=== PATIENT | male | born 1980 | race Caucasian/White ===

== ENCOUNTER 2017-12-26 10:40 | Inpatient (IN) | payer OTHER ==
[~2017-12-26] VITALS: Ht 195.6 cm; Wt 122.5 kg
[2017-12-27] VITALS (7 sets, daily range): BP systolic 109–131; BP diastolic 64–87
[2017-12-27] MEDS ORDERED: LORAZEPAM 1 MG TABLET PO PRN ×2 (03:00)
[2017-12-27] MEDS ORDERED: ACETAMINOPHEN 325 MG TABLET PO PRN (03:00)
[2017-12-27] MEDS ORDERED: BUPRENORPHINE HCL 2 MG TAB.SUBL SL PRN (03:00)
[2017-12-27] MEDS ORDERED: IBUPROFEN 400 MG TABLET PO PRN (03:00)
[2017-12-27] MEDS ORDERED: HYDROXYZINE PAMOATE 25 MG CAPSULE PO PRN (03:00)
[2017-12-27] MEDS ORDERED: MIRALAX 17 GM POWD.PACK PO PRN (03:00)
[2017-12-27] MEDS ORDERED: MAGNESIUM HYDROXIDE 30 ML LIQUID UDC PO PRN (03:00)
[2017-12-27] MEDS ORDERED: DICYCLOMINE HCL 20 MG TABLET PO PRN (03:00)
[2017-12-27] MEDS ORDERED: MAG HYDROX/AL HYDROX/SIMETH 30 ML LIQUID UDC PO PRN (03:00)
[2017-12-27] MEDS ORDERED: diphenhydrAMINE 50 MG CAPSULE PO PRN (03:00)
[2017-12-27] MEDS ORDERED: ONDANSETRON 4 MG/2 ML VIAL IM PRN (03:00)
[2017-12-27] MEDS ORDERED: LOPERAMIDE HCL 2 MG CAPSULE PO PRN ×2 (03:00)
[2017-12-27] MEDS ORDERED: LORAZEPAM 2 MG/1 ML VIAL IM PRN (03:00)
[2017-12-27] MEDS ORDERED: DULO60CA45 PO (03:10)
[2017-12-27] MEDS ORDERED: ALPR1TAB7 PO (03:10)
[2017-12-27] MEDS ORDERED: SUCR1ORA4 PO (03:10)
[2017-12-27] MEDS ORDERED: PANT40TA2 PO (03:10)
[2017-12-27] MEDS ORDERED: QUET200T PO (03:10)
[2017-12-27] MEDS ORDERED: DICL100T2 PO (03:10)
[2017-12-27 03:42] LABS: BASOPHILS # (AUTO) 0.1 K/uL (0.0-8.0); BASOPHILS % (AUTO) 0.8 % (0.0-2.0); EOSINOPHILS # (AUTO) 0.3 K/uL (0.0-0.7); EOSINOPHILS % (AUTO) 5.5 % (0.0-7.0); HEMATOCRIT 45.3 % (36.7-47.1); HEMOGLOBIN 14.8 g/dL (12.5-16.3); LYMPHOCYTES # (AUTO) 2.9 K/uL (20.0-40.0); LYMPHOCYTES % (AUTO) 46.6 % (20.5-51.5); MEAN CORPUSCULAR HEMOGLOBIN 25.4 uug (23.8-33.4); MEAN CORPUSCULAR HGB CONC 33 g/dL (32.5-36.3); MEAN CORPUSCULAR VOLUME 77.6 fL (73.0-96.2); MONOCYTES # (AUTO) 0.5 K/uL (2.0-10.0); MONOCYTES % (AUTO) 8.2 % (0.0-11.0); NEUTROPHILS # (AUTO) 2.5 K/uL (1.8-8.9); NEUTROPHILS % (AUTO) 38.9 % (38.5-71.5); PLATELET COUNT (AUTO) 218 K/uL (152-348); RED BLOOD CELL COUNT(AUTO) 5.84 MIL/uL (4.06-5.63); WHITE BLOOD COUNT (AUTO) 6.3 K/uL (3.6-10.2)
[2017-12-27 03:48] LABS: ALANINE AMINOTRANSFERASE 143 U/L (16-63); ALKALINE PHOSPHATASE 47 U/L (50-136); AMYLASE 55 U/L (25-115); ASPARTATE AMINOTRANSFERASE 55 U/L (15-37); BILIRUBIN,TOTAL 1.2 mg/dL (0.2-1.0); CARBON DIOXIDE 30 mmol/L (21-32); CHLORIDE 100 mmol/L (98-107); CREATININE 1.3 mg/dL (0.6-1.3); GLUCOSE 101 mg/dL (74-106); LIPASE 145 U/L (73-393); POTASSIUM 3.8 mmol/L (3.5-5.1); TOTAL PROTEIN, SERUM 8.8 g/dL (6.4-8.2); UREA NITROGEN, BLOOD 15 mg/dL (7-18)
[2017-12-27 03:50] LABS: ETHANOL < 3 MG/DL (0-0)
[2017-12-27 03:56] LABS: THYROID STIMULATING HORMONE 3.558 mIU/mL (0.358-3.740)
[2017-12-27] MEDS ORDERED: GABA300C PO (03:57)
[2017-12-27] MEDS ORDERED: TIZA4TAB4 PO (03:57)
[2017-12-27] MEDS ORDERED: MULTIVITAMINS,THERAPEUTIC TABLET PO SCH ×2 (09:00)
[2017-12-27] MEDS: SUCRALFATE 1 G/10 ML LIQUID UDC PO SCH ×3 (11:30→22:01)
[2017-12-27 13:07] LABS: *AMPHETAMINE, URINE NEGATIVE (NEGATIVE); *BARBITURATE, URINE NEGATIVE (NEGATIVE); *CANNABINOID, URINE NEGATIVE (NEGATIVE); *COCCAINE, URINE NEGATIVE (NEGATIVE); *OPIATE, URINE NEGATIVE (NEGATIVE); *PHENCYCLIDINE SCREEN,URINE NEGATIVE (NEGATIVE)
[2017-12-27] MEDS: LORAZEPAM 1 MG TABLET PO SCH ×2 (13:32→22:01)
[2017-12-27] MEDS: BUPRENORPHINE HCL 2 MG TAB.SUBL SL SCH ×2 (13:33→22:01)
[2017-12-27] MEDS: PANTOPRAZOLE SODIUM 40 MG TABLET.DR PO SCH (17:17)
[2017-12-27] MEDS: DULOXETINE 60 MG CAPSULE.DR PO SCH (22:00)
[2017-12-27] MEDS: GABAPENTIN 300 MG CAPSULE PO SCH (22:00)
[2017-12-28 00:39] VITALS: BP 130/86
[2017-12-28 04:25] VITALS: BP 126/79
[2017-12-28] MEDS ORDERED: CALC117719 PO (05:39)
[2017-12-28] MEDS: PANTOPRAZOLE SODIUM 40 MG TABLET.DR PO SCH ×2 (07:01→17:07)
[2017-12-28] MEDS: SUCRALFATE 1 G/10 ML LIQUID UDC PO SCH ×4 (07:01→21:15)
[2017-12-28 08:11] LABS: HEPATITIS B SURFACE AG Negative (Negative)
[2017-12-28 08:25] VITALS: BP 125/72
[2017-12-28] MEDS: LORAZEPAM 1 MG TABLET PO SCH ×2 (08:40→12:01)
[2017-12-28] MEDS ORDERED: TUBERCULIN,PURIF.PROT.DERIV. 5 TU/0.1 ML TEST ID ONE (09:00)
[2017-12-28] MEDS ORDERED: BUPRENORPHINE HCL 2 MG TAB.SUBL SL SCH (09:00)
[2017-12-28] MEDS: ONDANSETRON ODT 4 MG TAB.RAPDIS SL PRN (10:30)
[2017-12-28 12:07] VITALS: BP 135/74
[2017-12-28] MEDS: BUPRENORPHINE HCL 2 MG TAB.SUBL SL SCH ×2 (15:10→21:13)
[2017-12-28 16:57] VITALS: BP 119/89
[2017-12-28] MEDS ORDERED: LORAZEPAM 1 MG TABLET PO SCH ×2 (17:00→21:00)
[2017-12-28 20:13] VITALS: BP 137/90
[2017-12-28] MEDS: DULOXETINE 60 MG CAPSULE.DR PO SCH (21:14)
[2017-12-28] MEDS: GABAPENTIN 300 MG CAPSULE PO SCH (21:15)
[2017-12-29] VITALS (7 sets, daily range): BP systolic 127–151; BP diastolic 79–94
[2017-12-29] MEDS: SUCRALFATE 1 G/10 ML LIQUID UDC PO SCH ×4 (07:11→20:58)
[2017-12-29] MEDS: PANTOPRAZOLE SODIUM 40 MG TABLET.DR PO SCH ×2 (07:11→17:15)
[2017-12-29] MEDS: BUPRENORPHINE HCL 2 MG TAB.SUBL SL SCH ×3 (08:58→20:59)
[2017-12-29] MEDS ORDERED: LORAZEPAM 1 MG TABLET PO SCH ×3 (09:00→21:00)
[2017-12-29] MEDS: IBUPROFEN 600 MG TABLET PO PRN (09:01)
[2017-12-29] MEDS: ONDANSETRON ODT 4 MG TAB.RAPDIS SL PRN (09:01)
[2017-12-29] MEDS: METHOCARBAMOL 750 MG TABLET PO PRN (09:01)
[2017-12-29] MEDS: DICYCLOMINE HCL 20 MG TABLET PO SCH ×2 (15:03→20:58)
[2017-12-29] MEDS: CLONIDINE HCL 0.1 MG TABLET PO PRN (15:04)
[2017-12-29] MEDS: GABAPENTIN 300 MG CAPSULE PO SCH ×2 (15:04→20:58)
[2017-12-29] MEDS: DULOXETINE 60 MG CAPSULE.DR PO SCH (20:58)
[2017-12-29] MEDS: BACLOFEN 10 MG TABLET PO SCH (20:58)
[2017-12-29] MEDS: CLONIDINE HCL 0.1 MG TABLET PO SCH (20:59)
[2017-12-30 00:47] VITALS: BP 124/77
[2017-12-30 04:25] VITALS: BP 129/74
[2017-12-30] MEDS: PANTOPRAZOLE SODIUM 40 MG TABLET.DR PO SCH ×2 (06:57→16:28)
[2017-12-30] MEDS: SUCRALFATE 1 G/10 ML LIQUID UDC PO SCH ×4 (06:57→21:48)
[2017-12-30 08:00] VITALS: BP 131/79
[2017-12-30] MEDS: BACLOFEN 10 MG TABLET PO SCH ×2 (08:31→21:50)
[2017-12-30] MEDS: METHOCARBAMOL 750 MG TABLET PO PRN (08:31)
[2017-12-30] MEDS: IBUPROFEN 600 MG TABLET PO PRN (08:31)
[2017-12-30] MEDS: CLONIDINE HCL 0.1 MG TABLET PO SCH ×2 (08:32→21:51)
[2017-12-30] MEDS: GABAPENTIN 300 MG CAPSULE PO SCH ×2 (08:32→14:11)
[2017-12-30] MEDS: DICYCLOMINE HCL 20 MG TABLET PO SCH ×3 (08:32→21:50)
[2017-12-30] MEDS ORDERED: BUPRENORPHINE HCL 2 MG TAB.SUBL SL SCH (09:00)
[2017-12-30] MEDS ORDERED: LORAZEPAM 1 MG TABLET PO SCH (09:00)
[2017-12-30] MEDS ORDERED: METHYL SALICYLATE/MENTHOL CREAM 28 GM TUBE TOP PRN (11:00)
[2017-12-30 12:00] VITALS: BP 127/86
[2017-12-30] MEDS: LORAZEPAM 1 MG TABLET PO SCH ×3 (12:02→21:51)
[2017-12-30] MEDS ORDERED: LORAZEPAM 1 MG TABLET PO PRN ×2 (12:15)
[2017-12-30] MEDS ORDERED: QUETIAPINE FUMARATE 25 MG TABLET PO PRN (12:15)
[2017-12-30] MEDS: BUPRENORPHINE HCL 2 MG TAB.SUBL SL SCH ×2 (14:11→21:49)
[2017-12-30 16:00] VITALS: BP 135/88
[2017-12-30] MEDS: OLANZAPINE ZYDIS 5 MG TAB.RAPDIS PO PRN ×2 (16:28→21:56)
[2017-12-30 20:00] VITALS: BP 126/78
[2017-12-30] MEDS ORDERED: GABAPENTIN 300 MG CAPSULE PO SCH (21:00)
[2017-12-30] MEDS: DULOXETINE 60 MG CAPSULE.DR PO SCH (21:50)
[2017-12-31] VITALS: BP 107/67
[2017-12-31 04:00] VITALS: BP 106/63
[2017-12-31 08:00] VITALS: BP 97/54
[2017-12-31] MEDS: PANTOPRAZOLE SODIUM 40 MG TABLET.DR PO SCH ×2 (08:00→16:33)
[2017-12-31] MEDS: GABAPENTIN 300 MG CAPSULE PO SCH ×3 (08:01→21:51)
[2017-12-31] MEDS: BACLOFEN 10 MG TABLET PO SCH ×3 (08:01→21:51)
[2017-12-31] MEDS: DICYCLOMINE HCL 20 MG TABLET PO SCH ×3 (08:01→21:52)
[2017-12-31] MEDS: LORAZEPAM 1 MG TABLET PO SCH ×3 (08:02→21:51)
[2017-12-31] MEDS: BUPRENORPHINE HCL 2 MG TAB.SUBL SL SCH ×2 (08:02→21:51)
[2017-12-31] MEDS: CLONIDINE HCL 0.1 MG TABLET PO SCH ×3 (08:04→21:51)
[2017-12-31] MEDS: SUCRALFATE 1 G/10 ML LIQUID UDC PO SCH ×4 (08:05→21:50)
[2017-12-31] MEDS ORDERED: BUPRENORPHINE HCL 2 MG TAB.SUBL SL SCH (09:00)
[2017-12-31] MEDS ORDERED: LORAZEPAM 1 MG TABLET PO SCH (09:00)
[2017-12-31 12:00] VITALS: BP 119/72
[2017-12-31] MEDS: KETOROLAC TROMETHAMINE 30 MG INJ IM PRN ×2 (15:02→22:06)
[2017-12-31] MEDS: CLONIDINE HCL 0.1 MG TABLET PO PRN (15:13)
[2017-12-31 16:00] VITALS: BP 126/73
[2017-12-31 20:00] VITALS: BP 116/75
[2017-12-31] MEDS: DULOXETINE 60 MG CAPSULE.DR PO SCH (21:51)
[2017-12-31] MEDS: OLANZAPINE ZYDIS 5 MG TAB.RAPDIS PO PRN (22:05)
[2018-01-01] VITALS: BP 93/66
[2018-01-01 04:00] VITALS: BP 115/75
[2018-01-01 08:00] VITALS: BP 118/80
[2018-01-01] MEDS ORDERED: BUPRENORPHINE HCL 2 MG TAB.SUBL SL SCH (09:00)
[2018-01-01] MEDS ORDERED: LORAZEPAM 1 MG TABLET PO SCH (09:00)
[2018-01-01] MEDS: PANTOPRAZOLE SODIUM 40 MG TABLET.DR PO SCH ×2 (09:59→16:40)
[2018-01-01] MEDS: GABAPENTIN 300 MG CAPSULE PO SCH ×3 (09:59→20:24)
[2018-01-01] MEDS: SUCRALFATE 1 G/10 ML LIQUID UDC PO SCH ×4 (09:59→20:25)
[2018-01-01] MEDS: DICYCLOMINE HCL 20 MG TABLET PO SCH ×3 (09:59→20:24)
[2018-01-01] MEDS: BACLOFEN 10 MG TABLET PO SCH ×3 (09:59→20:24)
[2018-01-01] MEDS: CLONIDINE HCL 0.1 MG TABLET PO SCH ×2 (10:00→20:24)
[2018-01-01 12:00] VITALS: BP 128/80
[2018-01-01] MEDS: KETOROLAC TROMETHAMINE 30 MG INJ IM PRN ×2 (12:28→21:07)
[2018-01-01 16:00] VITALS: BP 129/86
[2018-01-01] MEDS ORDERED: CLON0.1T14 PO (16:34)
[2018-01-01] MEDS ORDERED: DIPH50CA37 PO (16:34)
[2018-01-01] MEDS ORDERED: GABA-534 PO (16:34)
[2018-01-01] MEDS ORDERED: METH-406 PO (16:34)
[2018-01-01] MEDS ORDERED: DICY20TA28 PO (16:34)
[2018-01-01] MEDS ORDERED: IBUP-1955 PO (16:34)
[2018-01-01] MEDS ORDERED: HYDR25CA PO (16:35)
[2018-01-01] MEDS: IBUPROFEN 600 MG TABLET PO PRN (16:40)
[2018-01-01 20:00] VITALS: BP 140/92
[2018-01-01] MEDS: DULOXETINE 60 MG CAPSULE.DR PO SCH (20:24)
[2018-01-02] MEDS: PANTOPRAZOLE SODIUM 40 MG TABLET.DR PO SCH (06:53)
[2018-01-02] MEDS: SUCRALFATE 1 G/10 ML LIQUID UDC PO SCH (06:54)
[2018-01-02 08:00] VITALS: BP 137/78
[2018-01-02 08:38] VITALS: BP 137/78
[2018-01-02] MEDS: BACLOFEN 10 MG TABLET PO SCH (08:38)
[2018-01-02] MEDS: DICYCLOMINE HCL 20 MG TABLET PO SCH (08:38)
[2018-01-02] MEDS: GABAPENTIN 300 MG CAPSULE PO SCH (08:38)
[2018-01-02] MEDS: CLONIDINE HCL 0.1 MG TABLET PO SCH (08:38)
== END 2018-01-02 09:35 | disposition other institution (70) | DRG 895 ==
LOC: SRC 12-27 02:11
PROVIDERS: ADMIT Internal Medicine; ATTEND Internal Medicine
PROC: HZ31ZZZ Individual Counseling for Substance Abuse Treatment, Behavioral (ICD-10-PCS; principal; 2017-12-27)
PROC: HZ2ZZZZ Detoxification Services for Substance Abuse Treatment (ICD-10-PCS; principal; 2017-12-27)
PROC: HZ41ZZZ Group Counseling for Substance Abuse Treatment, Behavioral (ICD-10-PCS; 2017-12-28)
DX: F11.23 Opioid dependence with withdrawal (principal); I15.9 Secondary hypertension, unspecified; F17.220 Nicotine dependence, chewing tobacco, uncomplicated; F43.10 Post-traumatic stress disorder, unspecified; F13.239 Sedative, hypnotic or anxiolytic dependence with withdrawal, unspecified; G89.29 Other chronic pain; M54.5 Low back pain; K27.7 Chronic peptic ulcer, site unspecified, without hemorrhage or perforation; G47.00 Insomnia, unspecified; Z81.1 Family history of alcohol abuse and dependence; K21.9 Gastro-esophageal reflux disease without esophagitis; Z82.49 Family history of ischemic heart disease and other diseases of the circulatory system; Z81.8 Family history of other mental and behavioral disorders; R74.0 Nonspecific elevation of levels of transaminase and lactic acid dehydrogenase [LDH]
CPT/HCPCS: 36415; 70030-TC; 80307; 83690; 83735; 84443; 85025; 86580; 86592; 86705; 86803; 87340; 87806; A4663; G0480; J1885; Q0162; Q0163